=== PATIENT | female | born 1965 | race Caucasian/White ===

== ENCOUNTER → 2017-04-25 | Outpatient (CLI) | payer OTHER ==
[~2017-04-25] MED LIST: CYAN10005 PO; CYCL10TA6 PO; EFF50 PO; FLNIN NAE; LISI20TA3 PO; LORA-741 PO; TRAM-10 PO
--- NOTE | 2017-04-25 20:40 | DIAGNOSTIC IMAGING REPORT ---
LUMBAR SPINE W/O CONTRAST CLINICAL HISTORY: 51 years-old Female presenting with SPONDYLOLISTHESIS, low back pain for 5 years, pain does not radiate down the legs, no prior surgery or injury, difficulty walking secondary to pain. TECHNIQUE: Multisequence, multiplanar MR imaging of the lumbar spine was performed without the use of intravenous contrast. IV contrast: None. COMPARISON: 02/17/2015. FINDINGS: Localizer images: Unremarkable. Normal lumbar lordosis. Vertebral bodies maintain normal height, alignment, and bone marrow signal intensity. Intervertebral disc spaces preserved. No significant neural foraminal or spinal canal stenosis. Facet arthropathy noted at L4-5 and L5-S1. Fluid noted within the zygapophyseal joints of L5-S1. Minimal bony edema within the pedicles of L4 and L5 are apparent, most prominently in the right L5 pedicle. Subtle paraspinal muscular edema. No focal fluid collection. Spinal cord ends in good position at the inferior endplate of L1. Cauda equina normal. Remaining soft tissues within normal limits. IMPRESSION: Minimal bony edema within the pedicles of L4 and L5, most prominently at the right L5 pedicle. Subtle associated paraspinal muscular edema. These findings are not convincing for an infectious etiology and are most likely degenerative. Correlate clinically to exclude infection. Additional degenerative changes as above. No significant neural foraminal or spinal canal stenosis. Electronically signed by: Costa Traylor M.D. 04/25/2017 8:39 PM Dictated Date/Time: 04/25/2017 8:34 PM
== END | disposition home or self-care (01) ==
LOC: C.MRI 19:10
PROVIDERS: ATTEND Orthopaedic Surgery Orthopaedic Surgery of the Spine
DX: M43.16 Spondylolisthesis, lumbar region (principal)

== ENCOUNTER → 2017-05-04 | Outpatient (CLI) | payer OTHER | END | disposition home or self-care (01) | LOC: C.PAPS 11:24 | PROVIDERS: ATTEND Obstetrics & Gynecology | DX: Z12.72 Encounter for screening for malignant neoplasm of vagina (principal); Z90.710 Acquired absence of both cervix and uterus; Z87.410 Personal history of cervical dysplasia ==